=== PATIENT | male | born 1995 | race Caucasian/White ===

== ENCOUNTER 2019-06-08 16:58 | Emergency (ER) | payer OTHER ==
[~2019-06-08] VITALS: Ht 177.8 cm; Wt 67.3 kg
[2019-06-08 17:46] VITALS: BP 119/76; TEMP 98.9
[2019-06-08 18:57] VITALS: PULSE 71
== END 2019-06-08 18:59 | disposition home or self-care (01) ==
LOC: COL.ER 16:58
DX: S60.221A Contusion of right hand, initial encounter (principal); W22.8XXA Striking against or struck by other objects, initial encounter; Y92.009 Unspecified place in unspecified non-institutional (private) residence as the place of occurrence of the external cause

== ENCOUNTER 2019-10-22 11:09 | Emergency (ER) | payer OTHER ==
[~2019-10-22] VITALS: Ht 177.8 cm; Wt 73.6 kg
[2019-10-22 11:13] VITALS: TEMP 98.3
[2019-10-22 12:01] VITALS: BP 118/77; PULSE 75
== END 2019-10-22 12:16 | disposition home or self-care (01) ==
LOC: COL.ER 11:09
DX: R11.2 Nausea with vomiting, unspecified (principal); R50.9 Fever, unspecified; R51 Headache; F17.210 Nicotine dependence, cigarettes, uncomplicated; Z20.828 Contact with and (suspected) exposure to other viral communicable diseases; Z90.89 Acquired absence of other organs